=== PATIENT | female | born 1995 | race Caucasian/White ===

== ENCOUNTER 2016-10-31 10:01 | Inpatient (IN) | payer MEDICAID ==
[~2016-10-31] VITALS: Ht 160 cm; Wt 83.2 kg
[2016-10-31] VITALS (13 sets, daily range): BP systolic 130–159; BP diastolic 83–107; Ht 160 cm; Wt 83.2 kg
--- NOTE | ~2016-10-31 | CN ---
PATIENT NAME:MIKE GURROLA MEDICAL RECORD: [id number] : 95 LOCATION:[id number] ADMIT DATE: 10/31/16 ACCOUNT: [id number] CONSULTING PHYSICIAN: ENOC HARO MD REFERRING PHYSICIAN: KYLER MCCRARY MD DATE OF CONSULTATION: 10/31/2016 CONSULT REQUESTING PHYSICIAN: Kyler Mccrary M.D. REASON FOR CONSULTATION: ICU management, DIC, status post . HISTORY OF PRESENT ILLNESS: Ms. Gurrola is a 20-year-old female who was brought into the ER by EMS. She was found in a pool of blood at home. The patient was evaluated by Dr. Mccrary. The baby was in distress and the patient was taken to the OR for emergent . The patient has a blood loss, nearly 1000 mL during the surgery. She was transfused with 2 units of blood, but the patient's fibrinogen dropped to 179 and her platelet dropped to 140 with a normal INR. REVIEW OF SYSTEMS: Mainly in the history of present illness. PAST MEDICAL HISTORY: She has a history of depression and anxiety. Otherwise, no significant past medical history. PAST SURGICAL HISTORY: None. ALLERGIES: SHE IS ALLERGIC TO SULFA. PRESENT MEDICATIONS: [employer] was reviewed. PERSONAL AND SOCIAL HISTORY: The patient is a nonsmoker and nondrinker. FAMILY HISTORY: Significant for cardiovascular disease. PHYSICAL EXAMINATION: GENERAL: Now, the patient is lying comfortably. She is not in acute distress. VITAL SIGNS: The blood pressure is 159/102, pulse is 89, respirations 20, temperature 98.1, and SPO2 is 97% on room air. HEENT: Conjunctivae pink, sclerae nonicteric. NECK: Supple, no JVD. CHEST: The chest excursion is minimal on both. No wheeze, no rales. HEART: Rate and rhythm regular, normal sound, no murmur. ABDOMEN: Soft. No hepatosplenomegaly. She has absent bowel sounds. RECTAL: Deferred. EXTREMITIES: No cyanosis, no clubbing, no pedal edema. CENTRAL NERVOUS SYSTEM: The patient is awake and alert. There are no obvious cranial nerve abnormalities. LABORATORY DATA: CBC: The WBC is 18.2, hemoglobin is 10.1, hematocrit is 30.9, and the platelet count is 127. The fibrinogen level was 179. IMPRESSION: 1. Possible disseminated intravascular coagulation. 2. Preeclampsia. 3. Hypertension secondary to preeclampsia. CONSULT REPORT [id number] MIKE GURROLA 4. Anemia secondary to acute blood loss. 5. Placental abruption. 6. Hypoalbuminemia. RECOMMENDATION: 1. IV fibrinogen. Dr. Urrutia is consulted. We will replace blood platelets as required. 2. IV magnesium. 3. Blood pressure control. 4. Follow up labs and chest radiograph. Discussed with Dr. Urrutia. Discussed with Dr. Mccrary. Dr. Mccrary, once again, thanks for involving me in the care of Ms. Gurrola. TRANSINT:[id number] Voice Confirmation ID: [id number] DOCUMENT ID: [id number] ENOC HARO MD CC: KYLER MCCRARY MD and JON URRUTIA MD [id number] DICTATION DATE: 10/31/16 1528 LOCAL COMPANY FLATBED TRUCK DRIVER: 10/31/16 1805 ADM IN [place] [id number] [place] [address]
[~2016-10-31 10:01] MED LIST: HYDROCODON-ACE1 EAC7 PO; IBUPROFEN600 MG PO; PRENATAL COMPLE1 TAB PO
[2016-10-31 11:03] LABS: FIBRINOGEN 179 mg/dL (239-481); PROTIME 14.1 SECONDS (11.6-15.0)
[2016-10-31 11:04] LABS: APTT 27.3 SECONDS (22.8-39.4)
--- NOTE | 2016-10-31 11:22 | NUR ---
XRAY CLEAR PER SIMIN IN XRAY.
[2016-10-31 11:27] LABS: D-DIMER-QUANTITATIVE > 20.00 ug/mLFEU (0.20-0.54)
[2016-10-31 11:39] LABS: HEMATOCRIT 35.1 % (36.0-48.0); HEMOGLOBIN 11.3 g/dL (12-16); MCH 27.1 pg (26.0-34.0); MCHC 32.2 g/dL (31.0-37.0); MCV 84.2 fL (80.0-100.0); PLATELET COUNT 140 10x3/uL (130-400); RBC 4.17 10x6/uL (4.00-5.40); WBC 22.5 10x3/uL (4.8-10.8)
[2016-10-31 12:05] LABS: EOSINOPHILS 1 % (0-7); LYMPHOCYTES 13 % (15-50); NEUTROPHILS 85 % (40-80)
--- NOTE | 2016-10-31 12:05 | NUR ---
CALLED TO ROOM FOR STAT C SECTION. UPON ENTERING ROOM ADJUNCT PSYCHOLOGY PROFESSOR AT HEAD OF BED PROVIDING O2 TO PT. FELTON WALTON RN IN ROOM WITH SD NOTED LAYING ON LEFT SIDE. FELTON WALTON INSERTED AGUILAR CATHETER. DR STEVENS PRESENT AND PREPPED PT ABDOMEN. HAYES ROBLEDO INTUBATED PT AND C SECTION STARTED PROMPTLY. DEWEY BENITEZ RN PRESENT FROM NURSERY. NO TIME FOR INITIAL COUNT OF SPONGES AND INSTRUMENTS. AGREED FOR POST OP XRAY. UNABLE TO OBTAIN CORD BLOOD. DR STEVENS AWARE.
[2016-10-31 12:06] LABS: PLATELET ESTIMATE NORMAL
[2016-10-31 12:09] LABS: UDS - AMPHET NEGATIVE QUAL (NEGATIVE); UDS - BARB NEGATIVE QUAL (NEGATIVE); UDS - BENZO POSITIVE QUAL (NEGATIVE); UDS - COCAINE NEGATIVE QUAL (NEGATIVE); UDS - METH NEGATIVE QUAL (NEGATIVE); UDS - OPIATE NEGATIVE QUAL (NEGATIVE); UDS - PCP NEGATIVE QUAL (NEGATIVE); UDS - THC POSITIVE QUAL (NEGATIVE)
[2016-10-31 12:09] LABS: ALBUMIN 1.7 g/dL (3.4-5.0); ALKALINE PHOSPHATASE 100 U/L (46-116); ALT (SGPT) 10 U/L (10-68); BILIRUBIN - TOTAL 0.23 mg/dL (0.2-1.3); CALC OSMOLALITY 272 mosm/kg (275-300); CALCIUM 7.3 mg/dL (8.5-10.1); CARBON DIOXIDE 21.3 mmol/L (21.0-32.0); CHLORIDE - SERUM 106 mmol/L (98-107); CREATININE - SERUM 0.7 mg/dL (0.6-1.3); GLUCOSE 88 mg/dL (74-106); POTASSIUM - SERUM 4.4 mmol/L (3.5-5.1); PROTEIN - SERUM 5.1 g/dL (6.4-8.2); SODIUM 138 mmol/L (136-145); UREA NITROGEN 8 mg/dL (7-18); eGFR NON AFRICAN AMERICAN > 90 mL/min (90-120)
--- NOTE | 2016-10-31 13:20 | NUR ---
THIS RN TO ROOM PER REQUEST OF PSYCHIATRIC NURSING AIDE TO PERFORM FUNDAL ASSESSMENT. PT AAOx3, TALKING WITH THIS RN. FUNDUS FIRM, SLIGHTLY DEVIATED TO RIGHT, U/2. SCANT RUBRA LOCHIA NOTED TO PERIPAD THAT WAS RECENTLY CHANGED BY PSYCHIATRIC NURSING AIDE. NO CLOTS EXPELLED WITH MASSAGE. REPORT GIVEN TO PSYCHIATRIC NURSING AIDE ON FUNDAL ASSESSMENT.
--- NOTE | 2016-10-31 13:30 | NUR ---
L&D NURSE AT BEDSIDE ASSESSING FUNDAS.
--- NOTE | 2016-10-31 13:30 | NUR ---
REC'D CARE OF PT. A&O X3.
--- NOTE | 2016-10-31 13:35 | NUR ---
MOM AND DAD ALLOWED BACK TO CHECK ON HER.
--- NOTE | 2016-10-31 13:56 | NUR ---
L&D NURSE AT BEDSIDE ASSESSING FUNDAS.
--- NOTE | 2016-10-31 13:59 | NUR ---
L&D NURSE CHANGED PAD UNDER PT. BLEEDING BASELINE ESTABLISHED.
--- NOTE | 2016-10-31 14:00 | NUR ---
TO ROOM TO ASSESS FUNDUS/LOCHIA. ABODMEN PALPATES SOFT, WITH FUNUS FIRM, U/2, SCANT MARY LOCHIA NOTED, NO CLOTS EXPRESSED. LARGE WHITE BANDAGE NOTED TO INCISION, C/D/I. KIEL CHUX CHANGED, AND PERIPADS X 2 PLACED. WARM BLANKETS PLACED BACK ON PT. PT'S FAMILY AT BEDSIDE. PT ASKING ABOUT PAIN MEDICATION, INFORMED ALICIA CROFT OF PT'S REQUEST.
--- NOTE | 2016-10-31 14:10 | NUR ---
THIRD UNIT FFP COMPLETED.
--- NOTE | 2016-10-31 14:12 | NUR ---
DR. RODNEY NIELSON FOR PAIN CONTROL.
[2016-10-31 14:17] LABS: UDS - AMPHET NEGATIVE QUAL (NEGATIVE); UDS - BARB NEGATIVE QUAL (NEGATIVE); UDS - BENZO NEGATIVE QUAL (NEGATIVE); UDS - COCAINE NEGATIVE QUAL (NEGATIVE); UDS - METH NEGATIVE QUAL (NEGATIVE); UDS - OPIATE NEGATIVE QUAL (NEGATIVE); UDS - PCP NEGATIVE QUAL (NEGATIVE); UDS - THC POSITIVE QUAL (NEGATIVE)
--- NOTE | 2016-10-31 14:35 | NUR ---
TO PT'S ROOM FOR FUNDAL CHECK, SMALL RUBRA LOCHIA NOTED, FUNDUS FIRM, U/2, SMALL TO MODERATE RUBRA LOCHIA NOTED WITH FUNDAL CHECK. DR. STEVENS IN ROOM, SPEAKING WITH PT. NOTES LOCHIA AT THIS TIME.
[2016-10-31 14:38] LABS: BASOPHILS 0.1 % (0-2); EOSINOPHILS 0.1 % (0-7); HEMATOCRIT 29.4 % (36.0-48.0); HEMOGLOBIN 9.8 g/dL (12-16); IMMATURE GRANULOCYTES 0.5 % (0-5); LYMPHOCYTES 6.8 % (15-50); MCH 27.4 pg (26.0-34.0); MCHC 33.3 g/dL (31.0-37.0); MEAN PLATELET VOLUME 10.3 fL (7.4-10.4); MONOCYTES 6.5 % (2-11); PLATELET COUNT 125 10x3/uL (130-400); RBC 3.58 10x6/uL (4.00-5.40); RDW 16.6 % (11.5-14.5)
[2016-10-31 14:40] LABS: MCV 82.1 fL (80.0-100.0); WBC 15.9 10x3/uL (4.8-10.8)
--- NOTE | 2016-10-31 14:45 | NUR ---
DR. STEVENS AT BEDSIDE UPDATING PT.
[2016-10-31 15:09] LABS: HEMATOCRIT 30.9 % (36.0-48.0); HEMOGLOBIN 10.1 g/dL (12-16); MCHC 32.7 g/dL (31.0-37.0); MCV 82.6 fL (80.0-100.0); MEAN PLATELET VOLUME 9.8 fL (7.4-10.4); RBC 3.74 10x6/uL (4.00-5.40); RDW 16.5 % (11.5-14.5); WBC 18.2 10x3/uL (4.8-10.8)
[2016-10-31 15:15] LABS: APTT 26.5 SECONDS (22.8-39.4); INR 1.12 (0.85-1.17); PROTIME 14.3 SECONDS (11.6-15.0)
--- NOTE | 2016-10-31 15:23 | NUR ---
TALKED WITH DR. STEVENS About giving ZOFRAN WITH THE OXYTOCIN AND SHE SAID TO GIVE IT.
--- NOTE | 2016-10-31 15:36 | NUR ---
PITOCIN DRIP CHANGED FROM 20 UNITS/1000NS AT 125 TO 40 UNITS/1000 AT 25 CC PER HOUR.
[2016-10-31 15:37] LABS: CALC OSMOLALITY 274 mosm/kg (275-300); CALCIUM 7.8 mg/dL (8.5-10.1); CARBON DIOXIDE 24.9 mmol/L (21.0-32.0); CHLORIDE - SERUM 104 mmol/L (98-107); CREATININE - SERUM 0.5 mg/dL (0.6-1.3); GLUCOSE 85 mg/dL (74-106); SODIUM 139 mmol/L (136-145); UREA NITROGEN 7 mg/dL (7-18); eGFR NON AFRICAN AMERICAN > 90 mL/min (90-120)
--- NOTE | 2016-10-31 15:45 | NUR ---
TO ROOM TO ASSESS FUNDUS. FUNDUS FIRM, U/2, SMALL RUBRA LOCHIA NOTED, NO CLOTS NOTED. ABDOMEN CONTINUES TO PALPATE SOFT, BANDAGE OVER INCISION C/D/I. PERICARE DONE WITH WARM WET WASHCLOTHS, PERIPADS PLACED X 2, AND CHUX CHANGED. SR UP X2, FAMILY REMAINS AT BEDSIDE.
--- NOTE | 2016-10-31 15:49 | NUR ---
L&D NURSE AT BEDSIDE. ASSESSING FUNDUS.
--- NOTE | 2016-10-31 16:00 | NUR ---
INCENTIVE SPIROMETER GIVEN TO AND EXPLAINED TO PT WITH DEMONSTRATION BY PT DONE.
--- NOTE | 2016-10-31 16:24 | NUR ---
MOM AT BEDSIDE. COMFORTING HER.
--- NOTE | 2016-10-31 17:01 | NUR ---
NO S/S OF INFILTRTION AT PIV X2 SITES.
--- NOTE | 2016-10-31 17:45 | NUR ---
TO ROOM FOR FUNDAL CHECK, FUNDUS FIRM, U/2, SMALL RUBRA LOCHIA, NO CLOTS. PERIPADS CHANGED. PT STATES "IT DOESN'T FEEL LIKE IT IS MUCH BLEEDING NOW". PT TALKING ABOUT BABY GIRL'S PROGRESS REPORT FROM [facility]. DENIES OTHER NEEDS AT THIS TIME.
[2016-10-31 18:31] LABS: BASOPHILS 0.1 % (0-2); EOSINOPHILS 0.1 % (0-7); HEMATOCRIT 30.6 % (36.0-48.0); IMMATURE GRANULOCYTES 0.3 % (0-5); LYMPHOCYTES 13.3 % (15-50); MCH 27.4 pg (26.0-34.0); MCHC 32.7 g/dL (31.0-37.0); MCV 83.8 fL (80.0-100.0); MEAN PLATELET VOLUME 10.2 fL (7.4-10.4); MONOCYTES 4.6 % (2-11); NEUTROPHILS 81.6 % (40-80); PLATELET COUNT 133 10x3/uL (130-400); RBC 3.65 10x6/uL (4.00-5.40); RDW 16.4 % (11.5-14.5); WBC 15.1 10x3/uL (4.8-10.8)
--- NOTE | 2016-10-31 18:41 | NUR ---
JOHANNY 1900 ON IS
[2016-10-31 18:54] LABS: INR 1.01 (0.85-1.17); PROTIME 13.1 SECONDS (11.6-15.0)
[2016-10-31 18:55] LABS: APTT 26.4 SECONDS (22.8-39.4)
--- NOTE | 2016-10-31 19:00 | NUR ---
REPORT RECIEVED, INITIAL ASSESSMENT COMPLETE, PLEASE SEE FLOW SHEETS FOR DETAILS. VSS, BED LOW AND LOCKED, CALL LIGHT IN REACH. AGUILAR IN PLACE WITH YELLOW URINE NOTED. DRESSING IN PLACE FROM CESARIAN SECTION THIS AM. PIV IN RIGHT HAND WITH DEMEROL CERTIFIED ADAPTED PHYSICAL EDUCATOR INFUSING AND 0.45%NS @ 25. LEFT AC PIV WITH OCITOCIN INFUSING AT 25, AND MAG SULFATE @ 50--PLEASE SEE ORDERS FOR DOSING. MOTHER AT BED SIDE, L&D NURSE AT BED SIDE TALKING WITH PATIENT AND FAMILY ABOUT SITUATION WITH PT BABY AND HER SITUATION WELL. SCD'S ON AND RUNNING, DENIES PAIN/NEEDS ATT, WILL CONTINUE POC.
--- NOTE | 2016-10-31 19:20 | NUR ---
RN TO PT BS. FUNDUS FIRM AND ML @ U/-2. KAREY BAXTER. DISCUSSED AT LENGTH WITH PT POSSIBLE INFANT OUTCOMES. MULTIPLE QUESTIONS ANSWERED. 3+ DTR'S IN LOWER EXTREMITIES BILATERALLY. NO CLONUS NOTED. PT REQUESTS FUNUS CHECKS BE CHANGED, NOT TO BE DONE Q1H. WILL DISCUSS WITH DR. STEVENS. DISCUSSED POC WITH CUSTOMER CONTACT SPECIALIST HORSE RIDER. MULTIPLE QUESTIONS ANSWERED. WILL CONT TO MONITOR PT STATUS THROUGH THE NIGHT.
--- NOTE | 2016-10-31 19:45 | NUR ---
CRYO HUNG AND INFUSING.
[2016-10-31 19:54] LABS: HEMATOCRIT 30.4 % (36.0-48.0); HEMOGLOBIN 9.9 g/dL (12-16); MCH 27.4 pg (26.0-34.0); MCHC 32.6 g/dL (31.0-37.0); MCV 84.2 fL (80.0-100.0); MEAN PLATELET VOLUME 9.9 fL (7.4-10.4); RBC 3.61 10x6/uL (4.00-5.40); RDW 16.6 % (11.5-14.5); WBC 14.2 10x3/uL (4.8-10.8)
--- NOTE | 2016-10-31 20:10 | NUR ---
DISCUSSED POC WITH DR. STEVENS, MAY CHANGE FUNDUS CHECKS TO Q2H. WILL PLACE NEW ORDER.
--- NOTE | 2016-10-31 20:30 | NUR ---
DR URRUTIA CALLED AND ASKED FOR UPDATE ON PT, THIS WAS GIVEN, HE SAID HW WANTED TO BE CALLED FOR ANY SIGNIFICANT CHANGE IN FIBRINOGEN LEVELS OR PT, PTT LEVELS ON NEXT LAB, ALSO OF ANY OTHER LABS ARE CHANGED SIGNIFICANTLY. ALSO SAID IF NEXT LAB OS OKAY, CAN CHANGE TO Q8HR LABS INSTEAD OF Q4HR LABS, SAID TO CALL TO CONFIRM THIS IF NEEDED.
[2016-10-31 20:49] LABS: UDS - AMPHET NEGATIVE QUAL (NEGATIVE); UDS - BARB NEGATIVE QUAL (NEGATIVE); UDS - BENZO POSITIVE QUAL (NEGATIVE); UDS - COCAINE NEGATIVE QUAL (NEGATIVE); UDS - METH NEGATIVE QUAL (NEGATIVE); UDS - OPIATE POSITIVE QUAL (NEGATIVE); UDS - PCP NEGATIVE QUAL (NEGATIVE); UDS - THC NEGATIVE QUAL (NEGATIVE)
--- NOTE | 2016-10-31 21:00 | NUR ---
COMPLAINS OF PAIN 6/10, SAID SHE JUST PUSHED HER SACK CLEANING HAND BUTTON. UNSTRUCTED THAT IT WOULD TAKE A FEW MOMENTS FOR EFFECT. NO OTHER NEEDS ATT, VSS, BED LOW AND LOCKED, CALL LIGHT IN REACH. WILL CONTINUE TO MONITOR.
--- NOTE | 2016-10-31 21:32 | NUR ---
RN TO PT BS. FUNDUS FIRM AND ML @ U/-2. LOCHIA RUBRA SMALL. URINE OUTPUT GREATER THAN 30CC/HR. VS WNL. DTR'S 2+ IN LOWER EXTREMITIES BILATERALLY WITH NO CLONUS NOTED. POC DISCUSSED WITH PT AND MOTHER AT BS. QUESTIONS ANSWERED. WILL CONT TO MONITOR PT STATUS.
[2016-10-31 22:17] LABS: BASOPHILS 0.1 % (0-2); EOSINOPHILS 0.1 % (0-7); HEMATOCRIT 30.4 % (36.0-48.0); HEMOGLOBIN 9.9 g/dL (12-16); IMMATURE GRANULOCYTES 0.3 % (0-5); LYMPHOCYTES 12.8 % (15-50); MCH 27.2 pg (26.0-34.0); MCHC 32.6 g/dL (31.0-37.0); MCV 83.5 fL (80.0-100.0); MEAN PLATELET VOLUME 9.6 fL (7.4-10.4); MONOCYTES 4.7 % (2-11); PLATELET COUNT 126 10x3/uL (130-400); RBC 3.64 10x6/uL (4.00-5.40); RDW 16.4 % (11.5-14.5); WBC 13.9 10x3/uL (4.8-10.8)
--- NOTE | 2016-10-31 22:25 | NUR ---
CALLED REPORT TO CHEYANNE VARGAS IN CVICU. WILL TRANSFER PT TO NEW UNIT.
[2016-10-31 22:34] LABS: APTT 26.2 SECONDS (22.8-39.4); INR 1.01 (0.85-1.17); PROTIME 13.2 SECONDS (11.6-15.0)
--- NOTE | 2016-10-31 22:41 | NUR ---
PT TRANSPORTED TO CVICU BY ICU STAFF AND PC MAINTENANCE TECHNICIAN.
--- NOTE | 2016-10-31 23:30 | NUR ---
Pt received and assessment completed. Pt alert, oriented x4 and following all commands and conversation with no neuro deficits noted. O2 RA. Respirations even and unlabored. Lung sounds CTA> HR SR with S1S2 auscultated. All peripheral pulses +2 with capillary refill <3 seconds. Right hand PIV site CDI no s/s infection or infiltration with 1/2NS @ 25cc/hr with Demerol INTERNATIONAL PROJECT ENGINEER setup 10mg q10min. Left A/C PIV site CDI; no s/s infection or infiltration with Pitocin @ 25cc/hr with Magnesium 40gm in 1000cc sterile water infusing @ 50cc/hr for 2gm Mg2+/hr infusion. Abdomen soft and distended. BS present to all quadrants. Massey catheter secure retrieving clear/yellow urine. Q1hr urine output monitoring in progress. SCDs secure bilaterally. Fundal checks per L&D nurse q2hr. DTRs currently 2+ patellar. Pt denies pain. Sips of ice water provided. Labs called to . Seamus for coags changed to AM. Will check next lab set @ 2am w/Mg2+ level. Mother at pt bedside. CPOC.
--- NOTE | 2016-10-31 23:37 | NUR ---
RN TO PT BS. FUNDUS FIRM AND ML @ U/-2. KAREY BAXTER. KIEL CARE PERFORMED. KIEL PADS CHANGED. POC REVIEWED WITH RECEIVING RN AND PT. QUESTIONS ANSWERED. WILL CONT TO MONITOR PT STATUS.
[2016-11-01] VITALS (18 sets, daily range): BP systolic 111–150; BP diastolic 61–100
--- NOTE | 2016-11-01 00:30 | NUR ---
Pt awakens to verbal stimulation. No changes to note. IVF infusing to PIV sites CDI; no s/s infection or infiltration. O2 RA. Respirations unlabored. Lung sounds CTA. HR SR. BS +. Massey remains secure retrieving clear/yellow urine. Pt denies current pain. Demerol GENERAL FOUNDRY WORKER button within pt reach. DTR 2+ patellar.
--- NOTE | 2016-11-01 01:30 | NUR ---
Pt self-positioned to left side and resting with VSS. NO s/s pain or distress.
--- NOTE | 2016-11-01 01:36 | NUR ---
RN TO PT BS. FUNDUS FIRM AND ML @ U/-2. LOCHIA RUBRA SMALL. KIEL CARE PERFORMED. KIEL PADS CHANGED. PT REPOSITIONED IN BED FOR COMFORT. VS STABLE. URINE OUTPUT WNL. LABS REMAIN STABLE. WILL CONT TO MONITOR PT STATUS.
[2016-11-01 02:38] LABS: BASOPHILS 0.1 % (0-2); EOSINOPHILS 0.1 % (0-7); HEMATOCRIT 30.2 % (36.0-48.0); HEMOGLOBIN 9.8 g/dL (12-16); IMMATURE GRANULOCYTES 0.3 % (0-5); LYMPHOCYTES 10.4 % (15-50); MCHC 32.5 g/dL (31.0-37.0); MCV 83.2 fL (80.0-100.0); MEAN PLATELET VOLUME 9.9 fL (7.4-10.4); MONOCYTES 4.1 % (2-11); PLATELET COUNT 121 10x3/uL (130-400); RBC 3.63 10x6/uL (4.00-5.40); RDW 16.8 % (11.5-14.5); WBC 13.2 10x3/uL (4.8-10.8)
[2016-11-01 02:53] LABS: APTT 27.4 SECONDS (22.8-39.4); INR 1.04 (0.85-1.17); PROTIME 13.4 SECONDS (11.6-15.0)
[2016-11-01 02:54] LABS: ALBUMIN 1.9 g/dL (3.4-5.0); ALKALINE PHOSPHATASE 102 U/L (46-116); CARBON DIOXIDE 24.1 mmol/L (21.0-32.0); CHLORIDE - SERUM 102 mmol/L (98-107); CREATININE - SERUM 0.5 mg/dL (0.6-1.3); GLUCOSE 95 mg/dL (74-106); PROTEIN - SERUM 5.6 g/dL (6.4-8.2); SODIUM 134 mmol/L (136-145); eGFR NON AFRICAN AMERICAN > 90 mL/min (90-120)
[2016-11-01 03:00] LABS: ALT (SGPT) 20 U/L (10-68); CALC OSMOLALITY 264 mosm/kg (275-300); CALCIUM 6.9 mg/dL (8.5-10.1); MAGNESIUM - SERUM 5.4 mg/dL (1.8-2.4); UREA NITROGEN 3 mg/dL (7-18)
--- NOTE | 2016-11-01 03:08 | NUR ---
SPOKE WITH DR. STEVENS REGARDING MAGNESIUM LEVEL OF 5.4, PT WITH GOOD URINE OUTPUT AND STABLE CREATININE, PER MD WILL CONT MAGNESIUM SULFATE INFUSION AT 2GM/HR AND CONT TO MONITOR PT STATUS.
--- NOTE | 2016-11-01 03:30 | NUR ---
Reassessment complete. See flowsheet. No neuro changes to note. O2 RA. Respirations even and unlabored. Lung sounds CTA. HR ST 102BPM with S1S2 auscultated. All peripheral pulses +2 with capillary refill <3 seconds. PIV sites remain CDI; no s/s infection or infiltration with NO IVF changes to note from previous assessment. BS +. Massey remains secure retrieving clear/yellow urine. L&D nurse here for fundal check and massage. Pericare completed per L&D RN. Pt positioned for comfort. Ice water provided per pt request. No other changes to note. Call light and bedside table with PEDIATRIC NEPHROLOGIST button remain within pt reach. CPOC.
--- NOTE | 2016-11-01 03:43 | NUR ---
RN TO PT BS. PT RESTING IN BED IN SEMI-FOWLERS POSITION TEXTING ON PHONE. FUNDUS FIRM AND ML @ U/-2. LOCHIA RUBRA SMALL. KIEL CARE PERFORMED, CHUX AND KIEL PADS CHANGED. 350ML CLEAR YELLOW URINE EMPTIED FROM UROMETER. DECORATOR CONSULTANT NOTIFIED TO ADD TO TOTAL OUTPUT. PT ENCOURAGED TO MOVE IN BED TO ALLEVIATE STIFFNESS. VS STABLE. 0215 LAB WORK WNL FOR PATIENT. WILL CONT TO MONITOR PT STATUS.
--- NOTE | 2016-11-01 05:30 | NUR ---
Pt awake on phone. VSS. Demerol ELASTIC ASSEMBLER syringe change completed. Pain denied. L&D nurse here for fundal check and pad change.
--- NOTE | 2016-11-01 05:41 | NUR ---
RN TO PT BS. PT RESTING IN BED IN SEMI-FOWLERS POSITION IN NO ACUTE DISTRESS. FUNDUS FIRM AND ML @ U/-2, LOCHIA SEROSA SCANT. KIEL CARE PERFORMED, KIEL PADS CHANGED. URINE OUTPUT GOOD. 1+ KIEL ORBITAL EDEMA NOTED. LABS STABLE FOR PT CONDITION. PT DENIES ANY NEEDS. WILL CONT TO MONITOR PT STATUS.
--- NOTE | 2016-11-01 07:30 | NUR ---
ASSESSMENT COMPLETE. SEE FLOWSHEET FOR DETAILS. L&D NURSE COMING AND DOING DTR'S AND FUNDUS ASSESSMENTS.
--- NOTE | 2016-11-01 07:35 | NUR ---
REQUESTED TO CONDUCT FUNDAL CHECK AND REFLEX CHECKS ON THIS POST OP C/S PATIENT IN CVICU. ALERT AND ORIENTED AT THIS TIME. U/2 FIRM, RUBRA SCANT ON PAD. CLEAN PERIPADS ON X 2. 1+ PATELLAR DTRS, NEG CLONUS. REQUESTED POSITION CHANGE. ASSISTED TO TURN TO LEFT SIDE. PILLOWS POSITIONED FOR COMFORT. SCD'S IN PLACE AND ON PUMP. INSTRUCTED ON USE OF PILLOW ON ABDOMEN FOR COUGHING AND POSITION CHANGES. SIDE RAILS UP X 2, OPERATING MANAGER CONTROL AND CALL BUTTON HANDED TO PATIENT. VISITOR SLEEPING ON COUCH. REPORT OF REFLEXES AND FUNDAL CHECK/LOCHIA GIVEN TO UNIT RN.
[2016-11-01 08:09] LABS: BASOPHILS 0.2 % (0-2); EOSINOPHILS 0.1 % (0-7); HEMATOCRIT 30.6 % (36.0-48.0); HEMOGLOBIN 9.9 g/dL (12-16); IMMATURE GRANULOCYTES 0.3 % (0-5); LYMPHOCYTES 12.3 % (15-50); MCH 27.3 pg (26.0-34.0); MCHC 32.4 g/dL (31.0-37.0); MCV 84.5 fL (80.0-100.0); MONOCYTES 4.8 % (2-11); NEUTROPHILS 82.3 % (40-80); PLATELET COUNT 131 10x3/uL (130-400); RBC 3.62 10x6/uL (4.00-5.40); RDW 17.2 % (11.5-14.5); WBC 11.3 10x3/uL (4.8-10.8)
[2016-11-01 08:20] LABS: APTT 27.4 SECONDS (22.8-39.4); INR 0.99 (0.85-1.17); PROTIME 12.9 SECONDS (11.6-15.0)
--- NOTE | 2016-11-01 08:40 | NUR ---
TALKED TO DR STEVENS ON PHONE REGARDING PT BLEEDING AND DTRS THIS MORNING. REVIEWED CBC, FIBRINOGEN, MAG RESULTS AND CURRENT VS WITH MD. NEW ORDERS RECEIVED. ANTICIPATE TRANSFER BACK TO L&D FOR CONTINUED POST OP C/S CARE. PT CVICU NURSE NOTIFIED OF NEW ORDERS.
--- NOTE | 2016-11-01 09:00 | NUR ---
FAMILY AT BEDSIDE. DENIES NEEDS AT THIS TIME.
--- NOTE | 2016-11-01 09:30 | NUR ---
TO CVICU TO DO FUNDAL CHECK AND DTR. SITTING UP IN BED EATING CLEAR LIQUID DIET. U/2 FIRM MIDLINE. LOCHIA SEROSA SMALL TO MOD ON PAD. CLEAN KIEL-PADS X 2 PLACED. DTR 1+. INFORMED PT OF PLAN PER MD TO DC IV FLUIDS AND AGUILAR AT 1000 AND TRANSFER TO L&D AFTER CONSULT MD APPROVES. PLAN DC DRESSING, SHOWER, AMBULATION TODAY. VERBALIZED UNDERSTANDING.
--- NOTE | 2016-11-01 10:51 | OP ---
PATIENT NAME: MIKE GURROLA MEDICAL RECORD: [id number] :95 LOCATION:[id number] ADMISSION DATE:10/31/16 SURGEON: KYLER MCCRARY MD DATE OF OPERATION: 10/31/2016 PREOPERATIVE DIAGNOSES: 1. Intrauterine at 36+ weeks per patient reported MEDINA. 2. Nonreassuring heart rate tracing. 3. Suspected placental abruption. POSTOPERATIVE DIAGNOSES: 1. Intrauterine at 36+ weeks per patient reported MEDINA. 2. Nonreassuring heart rate tracing. 3. Complete placental abruption. 4. Delivered. SURGEON: Kyler Mccrary MD ANESTHESIA: General endotracheal anesthesia with Chi Mathias CRNA. PROCEDURE: Emergent primary low-transverse . FINDINGS: Delivery of female from vertex presentation via emergent primary low-transverse under general endotracheal anesthesia at 10:16 a.m. with weight of 4 pounds 9 ounces and scores of 0, 0, 0, 2, 2 at one, 5, 10, 15, and 20 minutes. No nuchal cord. The cord was clamped and cut. The was immediately handed to waiting pediatric nurse. The was dusky in appearance with no discernible spontaneous movements, nor respiratory effort. The placenta then followed spontaneously with 100% abruption noted, at 10:16 a.m. Copious fresh and older appearing blood and clot noted behind placenta and an uterus. Twenty units of Pitocin in 1 liter of normal saline was begun IV. The fundus was noted to be firm. Otherwise, normal appearing uterus, ovaries and tubes bilaterally. The patient went to the recovery room in guarded condition, the to the NICU where the soil fertility specialist was awaiting the 's arrival. Please see H&P for preoperative details. DESCRIPTION OF PROCEDURE: After informed consent was given, the patient was taken to the operating room emergently in a knee-chest position as a stat was called. The OR team was notified as the patient was wheeled down the merino away. The patient was then rapidly transferred to the OR table, placed in a supine position with a leftward tilt. A Massey catheter was placed. The patient was prepped and draped and general endotracheal anesthesia was placed and found to be adequate. A Pfannenstiel skin incision was then made through the skin and carried down to the underlying layer of fascia. The fascia was incised in the midline and the fascial incision extended superiorly and bilaterally in a Abhijit-Enriquez like procedure. The rectus muscles were in the midline, the peritoneum identified and entered bluntly with a finger. This incision was extended superiorly and inferiorly with good visualization of the bladder. The hysterotomy was then created with the knife. This was extended bilaterally bluntly and the infant's head delivered atraumatically. Copious amounts of blood and clot were noted at the time of hysterotomy. The was then immediately handed to awaiting pediatric personnel as soon as the cord was clamped and cut. The infant was dusky in appearance with no discernible spontaneous movements or respiratory effort. The placenta then followed the spontaneously with 100% abruption noted. Copious fresh OPERATIVE REPORT [id number] FREDDIE GURROLAJosefina Mcclain and older appearing blood and clot was noted behind the placenta and in the uterus. The uterus was exteriorized and cleared of all clots and debris. The interior of the uterus was wiped with a moist lap sponge. The hysterotomy was then closed with #1 chromic in a running locked fashion. Excellent hemostasis was noted and the uterus was returned to the abdomen. The abdomen was irrigated profusely and noted to be hemostatic. The rectus muscles were reapproximated in the midline with 3 interrupted chromic sutures. The fascia was closed with 0 Vicryl in a running fashion, locking the first suture. The subcutaneous tissue was irrigated, any bleeders cauterized with the Bovie and when noted to be sufficiently dry, was closed with 3-0 Vicryl in 2 layers in a running fashion and the skin was closed with 3-0 Monocryl in a subcuticular fashion. Dermabond and pressure dressing were applied. The uterus was noted to be firm at completion of the procedure. Clear urine was noted in the Massey catheter. The patient tolerated the procedure well. Sponge, lap, needle, and instrument counts were reported correct times 1 due to the expedited nature of the procedure. Instruments, needle, and lap counts were not performed at the start of the procedure. Once the procedure was completed, an abdominal x-ray was performed, confirming that no sponge laps or needles had been left within the patient's abdomen and all were accounted for. The patient was then moved into the recovery room in guarded condition. The , of course, was in the nursery/NICU where the soil fertility specialist was awaiting her arrival. ESTIMATED BLOOD LOSS: 1500+ cc. URINE OUTPUT: 5 cc. SPECIMENS: Placenta. COMPLICATIONS: None. Of note, cord blood was unable to be obtained due to the lack of blood within the umbilical cord and placenta due to the abruption. TRANSINT:[id number] Voice Confirmation ID: [id number] DOCUMENT ID: [id number] KYLER MCCRARY MD at 1051 CC: [id number] DICTATION DATE: 10/31/16 1834 SALES HOST: 10/31/16 2200 ADM IN [facility] [address] [id number]
--- NOTE | 2016-11-01 11:15 | NUR ---
DC'D AGUILAR, STOPPED IV FLUIDS
--- NOTE | 2016-11-01 12:40 | NUR ---
PT RECEIVED TO ROOM 1278 VIA W/C. PT INSTRUCTED ON POSTURE AND BRACING INCISION SHE STANDS TO AMBULATE TO BED. PT FOLLOWS INSTRUCTIONS, STANDS WITHOUT ASSISTANCE AND AMBULATES APPROX 5 STEPS TO BED, SITS ON BEDSIDE. WITH INSTRUCTION, PT POSITIONS SELF TO SITTING UP IN BED, HOB 60 DEGREES, SUPPORTED WITH PILLOWS. PT RATES PAIN 5/10. VS OBTAINED AND NOTED TO BE STABLE, SEE FLOWSHEET FOR DOC. PT PROVIDED WITH SPRITE ON ICE REQUESTED. SRUx2, CL IN REACH, FAMILY AT BEDSIDE. ALICIA MCGUIRE OBTAINING ORDERED PAIN MEDICAITONS FOR PT.
--- NOTE | 2016-11-01 12:50 | NUR ---
U/2 FIRM, LOCHIA SEROSA SMALL, SALINE LOCK IN RIGHT WRIST PAINFUL TO PT AND WOULD NOT FLUSH, DC'D LOCK AT THIS TIME. SALINE LOCK IN LEFT ANTECUBITAL NON-TENDER, SALINE FLUSHED WITHOUT DIFF. NO ERRYTHEMA NOTED. ORIENTED TO ROOM AND BED. C/O 5/10 INCISIONAL PAIN. VISITORS IN [place] WAITING TO SEE PT. FRESH ICE WATER AND [place] DRINK AT BEDSIDE. SIDE RAILS UP X 2, CALL LIGHT IN REACH.
--- NOTE | 2016-11-01 13:05 | NUR ---
PERCOCET 10 MG GIVEN PO FOR RELIEF OF 5/10 INCISIONAL PAIN. PLANS TO TALK WITH VISITORS, TAKE A NAP AND THEN SHOWER AMBULATE LATER. HAD LUNCH PRIOR TO TRANSFER. SIDE RAILS UP X 2, CALL LIGHT IN REACH. SCD'S CONNECTED AND PUMPING BILATERALLY APPROPRIATELY. INSTRUCTED NOT TO GET OOB WITHOUT ASSISTANCE. VERBALIZED UNDERSTANDING.
--- NOTE | 2016-11-01 13:31 | NUR ---
DR STEVENS HERE. ASKED HER ABOUT CONTINUATION OF COAG PANELS. NEW ORDER RECEIVED.
--- NOTE | 2016-11-01 13:40 | NUR ---
VISITORS STILL IN ROOM. SAYS HER PAIN IS GETTING BETTER, NOW A 2/10. FEELING TIRED STATES "I DIDN'T SLEEP LAST NIGHT. I'D LIKE TO TAKE A NAP". INSTRUCTED WILL ASSIST IN MAKING HER COMFORTABLE TO SLEEP BUT TO WAIT JUST A LITTLE SINCE DR STEVENS IS ON L&D MAKING ROUNDS AND WILL BE IN TO SEE HER. ALSO INFORMED THAT MD WILL PROBABLY REMOVE ABDOMINAL DRESSING DURING VISIT.
--- NOTE | 2016-11-01 14:08 | NUR ---
DR STEVENS VISITING PATIENT.
[2016-11-01 14:28] LABS: APTT 27.8 SECONDS (22.8-39.4); INR 0.97 (0.85-1.17); PROTIME 12.7 SECONDS (11.6-15.0)
--- NOTE | 2016-11-01 14:40 | NUR ---
THIS RN TO ROOM FOR PT CHECK. PT SITTING UP IN BED, HOB 45 DEGREES. LIGHTS IN ROOM DIMMED, PT TEXTING ON PHONE.POC TO SHOWER AND AMBULATED, AND MONITOR BP'S WITH ACTIVITY PER DR STEVENS'S ORDERS DISCUSSED WITH PT. UNDERSTANDING VERBALIZED. PT ENCOURAGED TO REST AND PLAN TO SHOWER BETWEEN 1530 AND 1600. PT DENIES NEEDS. SRUx2, CL IN REACH.
--- NOTE | 2016-11-01 14:44 | NUR ---
LIGHTS ON LOW, VISITORS GONE. DENIES NEED TO VOID AND DOES NOT WANT TO GET UP TO SHOWER NOW. STATES "I REALLY NEED TO SLEEP. I WILL SHOWER AND WALK AFTERWARD". SIDE RAILS UP X 2, CALL LIGHT IN REACH. ABD DRESSING STILL INTACT, WILL REMOVE IN SHOWER. DR. STEVENS ON L&D AND NOTED COAG. LAB NOTIFIED OF NEED FOR CBC.
[2016-11-01 14:53] LABS: BASOPHILS 0 % (0-2); EOSINOPHILS 0.1 % (0-7); HEMATOCRIT 30.7 % (36.0-48.0); HEMOGLOBIN 9.8 g/dL (12-16); IMMATURE GRANULOCYTES 0.3 % (0-5); LYMPHOCYTES 10.8 % (15-50); MCH 27.3 pg (26.0-34.0); MCHC 31.9 g/dL (31.0-37.0); MCV 85.5 fL (80.0-100.0); MEAN PLATELET VOLUME 10.6 fL (7.4-10.4); MONOCYTES 6.5 % (2-11); NEUTROPHILS 82.3 % (40-80); PLATELET COUNT 140 10x3/uL (130-400); RBC 3.59 10x6/uL (4.00-5.40); RDW 17.5 % (11.5-14.5); WBC 10.8 10x3/uL (4.8-10.8)
--- NOTE | 2016-11-01 15:40 | NUR ---
EYES CLOSED, RESPIRATIONS EVEN. VISITOR ARRIVED AND INSTRUCTED THAT PATIENT IS CURRENTLY SLEEPING AND CAN THE RETURN AROUND 1700. SIDE RAILS UP X 2, CALL LIGHT IN REACH.
--- NOTE | 2016-11-01 16:20 | NUR ---
PT AWAKE, DR CAMPOVERDE VISITING. VISITORS IN ROOM. PLANS SHOWER AND AMBULATION AFTER VISITORS LEAVE.
--- NOTE | 2016-11-01 16:33 | NUR ---
PEDITRICIAN OUT OF ROOM. PT CURRENTLY TEARFUL, REQUESTS TIME WITH FAMILY AT THE MOMENT.
--- NOTE | 2016-11-01 17:07 | NUR ---
UP TO BATHROOM TO VOID. VOIDED 200 CC URINE. ASSISTED TO SHOWER. KAREY BAXTER ON PERIPAD PRIOR TO VOIDING. STATES "I FEEL BETTER WHEN I AM UP".
--- NOTE | 2016-11-01 17:40 | NUR ---
COMPLETED SHOWER. AMBULATED IN [place] WITHOUT DIFFICULTY. RETURNED TO BED STATES "I'M STARTING TO HURT". DESIRES TO SIT ON EDGE OF BED. BP CHECKED. NOTED ELEVATED PULSE. WILL GIVE PAIN MED AND MONITOR PULSE WITH PULSE OX. PT MOTHER IN ROOM. REGULAR DIET SERVED.
--- NOTE | 2016-11-01 17:46 | NUR ---
PERCOCET 10 MG GIVEN PO FOR RELIEF OF PAIN. SITTING ON EDGE OF BED EATING DINNER. VISITORS IN ROOM.
--- NOTE | 2016-11-01 18:25 | NUR ---
PULSE TRACING ON MHR 120'S. DENIES FEELING ANY PAIN AT THIS TIME. SAYS SHE DOES NOT HAVE MUCH OF AN APPETITE. INFORMED HER THAT THIS IS NOT UNCOMMON AND THAT SMALL FREQUENT MEALS MAY BE BEST AND LET HER KNOW OF AVAILABLE FOODS THAT SHE CAN ASK FOR IF SHE FEELS HUNGRY. STATES "I JUST FEEL THIRSTY". FRESH ICE WATER GIVEN. PLANS TO GET IN BED TO REST. NOTIFIED DR STEVENS OF BP AND PULSE PRIOR TO SHOWER AND AMBULATION. WITH ELEVATED PULSE RATE AT 130-140'S AFTER WALKING. NOTIFIED THAT PT WAS GIVEN PAIN MEDICATION AND PULSE OX ON TO MONITOR HR. CURRENT HEART RATE IN 120'S. T.O TO WATCH HR FOR TRENDING UP OR DOWN.
--- NOTE | 2016-11-01 19:22 | NUR ---
PT RECEIVED TO MY CARE IN LDR 1278. PT RESTING IN BED IN SEMI-FOWLERS POSITION, IN NO ACUTE DISTRESS, VISITING WITH MULTIPLE FAMILY MEMBERS AT BS. PT IS A 20YO G2 NOW P2 WITH PRIMARY STAT C/S YESTERDAY @ 1016 OF VIABLE FEMALE @ 36.5 WKS GESTATION. PT PRESENTED WITH SEVERE PRE-ECLAMPSIA WITH ACTIVE PLACENTAL ABRUPTION, WITH FULL CODE AND TRANSFERED TO [facility] FOR TERTIARY CARE AND HEAD COOLING. PT WITH SUSPECTED DIC AND OVERNIGHT OBSERVATION IN ICU. AAOX3. HR REGULAR WITH OCCASIONAL TACHYCARDIA. LUNGS CTAB. ABDOMEN SOFT AND NON TENDER. BS HYPOACTIVE TIMES 4. LOWER ABDOMINAL TRANSVERSE INCISION NOTED. WELL PROXIMATED, NO ROMAINE OR STERI-STRIPS NOTED TO SITE. NO REDNESS, EDEMA, OR DRAINAGE NOTED. PT STATES SHE IS PASSING GAS BUT HAS NOT HAD A BM. PT HAS VOIDED ONCE SINCE AGUILAR HAS BEEN D/C'D. PT S/P MAGNESIUM SULFATE THERAPY FOR 24 HOURS. 1+ GENERALIZED EDMEA NOTED. SCD'S IN PLACE TO LOWER EXTREMITIES BILATERALLY. 18G SL IN PLACE TO LEFT AC. FLUSHED WITH 5CC NS WITHOUT DIFFICULTY. NO REDNESS, EDEMA, OR DRAINAGE NOTED AT SITE. FUNDUS NOT PALPATED. KIEL PAD AND PANTIES IN PLACE. LOCHIA SEROSA SCANT. PT DENIES GOMEZ, RUQ PAIN, OR VISION CHANGES AT THIS TIME. LAB WORK DRAWN @ 1400. H&H 9.8 & 30.7, PLATELETS 140, COAGS WNL, FIBRINOGEN 472. POC DISCUSSED WITH PT AND QUESTIONS ANSWERED. PT TOLERATING REGULAR DIET WITHOUT DIFFICULTY. PT DENIES ANY NEEDS AT THIS TIME. BED IN LOW POSITION, SIDE RAILS UP TIMES 2, CALL LIGHT AND PHONE IN REACH. WILL CONT TO MONITOR PT STATUS.
--- NOTE | 2016-11-01 21:00 | NUR ---
RN TO PT BS. PT ASSISTED TO BR, PT AMBULATED WITH MINIMAL ASSISTANCE. PT VOIDED 400ML CONCENTRATED PERLA URINE. PT CLEANED SELF AND CHANGED KIEL PAD. PT RETURNED AMBULATION TO BED. SCD'S REPLACED. PT QUESTIONS ABOUT PAIN MEDICATION. PAIN MEDICATION SCHEDULE DISCUSSED WITH PT, QUESTIONS ANSWERED ABOUT POSSIBLE DISCHARGE FOR TOMORROW. WILL PROVIDE PT WITH PAIN MEDICATION WHEN IT IS DUE. PT DENIES ANY FURTHER NEEDS. BED IN LOW POSITION, SIDE RAILS UP TIMES 2, CALL LIGHT AND PHONE IN REACH. FAMILY TIMES 1 AT PT BS FOR SUPPORT AND ASSISTANCE. WILL CONT TO MONITOR PT STATUS.
--- NOTE | 2016-11-01 21:44 | NUR ---
RN TO PT BS. PT C/O PAIN, RATES 01/18, REQUESTS MEDICATION. 1 TAB PERCOCET 10 AND 1 TAB IBUPROFEN PROVIDED AT THIS TIME. VS TAKEN AT THIS TIME TO ALLOW PT TO REST. WILL CONT TO MONITOR PT STATUS. BED IN LOW POSITION, SIDE RAILS UP TIMES 2, CALL LIGHT AND PHONE IN REACH. FAMILY TIMES 1 AT PT BS FOR SUPPORT AND ASSISTANCE.
--- NOTE | 2016-11-01 23:36 | NUR ---
RN TO PT BS FOR ROUNDS. PT RESTING IN BED IN SEMI-FOWLERS POSITION, TEXTING ON PHONE, IN NO ACUTE DISTRESS. PT DENIES ANY NEEDS AT THIS TIME. BED IN LOW POSITION, SIDE RAILS UP TIMES 2, CALL LIGHT AND PHONE IN REACH. FAMILY AT PT BS TIMES 1 FOR SUPPORT AND ASSISTANCE. WILL CONT TO MONITOR PT STATUS.
[2016-11-02 01:33] VITALS: BP 127/77
--- NOTE | 2016-11-02 01:40 | NUR ---
RN TO PT BS FOR VS. VS TAKEN, WNL. PT C/O PAIN, RATES 01/18, REQUESTS MEDICATION. 1 TAB PERCOCET 10 PROVIDED AT THIS TIME. PT REQUESTS FAN, PROVIDED. PT DENIES ANY FURTHER NEEDS. BED IN LOW POSITION, SIDE RAILS UP TIMES 2, CALL LIGHT AND PHONE IN REACH. FAMILY AT PT BS FOR SUPPORT AND ASSISTANCE. WILL CONT TO MONITOR PT STATUS.
[2016-11-02 05:27] VITALS: BP 136/89
--- NOTE | 2016-11-02 05:32 | NUR ---
RN CALLED TO PT BS. PT C/O PAIN, RATES 02/18. REQUESTS MEDICATION. 1 TAB PERCOCET 10 AND 1 TAB IBUPROFEN PROVIDED AT THIS TIME. VS TAKEN, WNL. PT DENIES ANY FURTHER NEEDS AT THIS TIME. BED IN LOW POSITION, SIDE RAILS UP TIMES 2, CALL LIGHT AND PHONE IN REACH. FAMILY AT PT BS TIMES 1 FOR SUPPORT AND ASSISTANCE. WILL CONT TO MONITOR PT STATUS.
--- NOTE | 2016-11-02 06:25 | NUR ---
CLINICAL LAB AT PT BS FOR AM DRAW. WILL ADD CBC TO REQUESTED LAB.
[2016-11-02 06:31] LABS: BASOPHILS 0 % (0-2); EOSINOPHILS 0.3 % (0-7); HEMATOCRIT 27.4 % (36.0-48.0); HEMOGLOBIN 8.6 g/dL (12-16); IMMATURE GRANULOCYTES 0.3 % (0-5); MCH 27.3 pg (26.0-34.0); MCHC 31.4 g/dL (31.0-37.0); MEAN PLATELET VOLUME 9.7 fL (7.4-10.4); MONOCYTES 6.8 % (2-11); NEUTROPHILS 74.6 % (40-80); PLATELET COUNT 148 10x3/uL (130-400); RBC 3.15 10x6/uL (4.00-5.40); RDW 17.7 % (11.5-14.5)
[2016-11-02 07:01] LABS: ALBUMIN 1.8 g/dL (3.4-5.0); ALKALINE PHOSPHATASE 95 U/L (46-116); ALT (SGPT) 20 U/L (10-68); BILIRUBIN - TOTAL 0.19 mg/dL (0.2-1.3); CARBON DIOXIDE 28.6 mmol/L (21.0-32.0); CHLORIDE - SERUM 104 mmol/L (98-107); GLUCOSE 84 mg/dL (74-106); PROTEIN - SERUM 5.8 g/dL (6.4-8.2); SODIUM 138 mmol/L (136-145)
[2016-11-02 07:02] LABS: CALC OSMOLALITY 272 mosm/kg (275-300); CREATININE - SERUM 0.7 mg/dL (0.6-1.3); MAGNESIUM - SERUM 3.4 mg/dL (1.8-2.4); UREA NITROGEN 8 mg/dL (7-18); eGFR NON AFRICAN AMERICAN > 90 mL/min (90-120)
--- NOTE | 2016-11-02 08:15 | NUR ---
TO PT'S ROOM, PT IS ASLEEP, LIGHTS ARE DIMMED IN ROOM, RESP EVEN AND UL, PT NOT DISTURBED AT THIS TIME. VISITOR IN ROOM ALSO ASLEEP, ON SOFA.
--- NOTE | 2016-11-02 09:15 | NUR ---
DR. STEVENS CALLS TO UNI, AM LABWORK RESULTS GIVEN TO MD, LAST PM'S AND THIS AM BP'S REPORTED TO MD. TELEPHONE ORDER TO DISCHARGE PT WITH 3 WEEK POST INCISION CHECK, PT HAS SEEN DR. TURNER IN THE PAST. MD STATES SHE WILL BE COMING BY IN A FEW HOURS.
--- NOTE | 2016-11-02 09:50 | NUR ---
TO ROOM, PT IS AWAKE, SITTING UP IN THE BED, PT'S FAMILY AT BEDSIDE. PT DENIES HEAVY VAGINAL BLEEDING OR PASSING CLOTS. ABDOMEN PALPATES SOFT, INCISION C/D/I, NO REDNESS NOTED TO INCISION SITE. PT HAS PERIPAD IN PLACE OVER INCISION FOR COMFORT, MESH PANTIES ON. DISCUSSING WITH PT PREECLAMPTIC SIGNS AND SYMPTOMS, AND POST DISCHARGE INSTRUCTIONS EXPLAINED TO PT AND FAMILY MEMBER IN ROOM. PT AGREES AND VOICES UNDERSTANDING.
[2016-11-02 10:04] VITALS: BP 129/79
[2016-11-02] MEDS ORDERED: PERCOCET 5-3251 TAB PO (10:15)
[2016-11-02] MEDS ORDERED: IBUPROFEN600 MG PO (10:15)
--- NOTE | 2016-11-02 10:20 | NUR ---
ASSISTED PT UP TO BR, PT MOVING SLOW, BUT STEADY.
[2016-11-02] MEDS ORDERED: ZOLOFT50 MG PO (10:26)
--- NOTE | 2016-11-02 10:35 | NUR ---
DR. STEVENS ON UNIT, TO ROOM TO SPEAK WITH PT.
--- NOTE | 2016-11-02 11:00 | NUR ---
DISCHARGE INSTRUCTIONS EXPLAINED TO PT, COPIES OF ALL D/C INSTRCUCTIONS GIVEN TO PT. PRESCRIPTIONS GIVEN TO PT, AND PP APPT CARD, ALONG WITH PT EDUCATION SHEETS GIVEN. PT DENIES QUESTIONS. PERIPADS/PANTIES/PERSONAL CARE ITEMS PROVIDED FOR PT TO TAKE WITH HER TO [place] GIVEN TO PT/FAMILY. PT DISCHARGED TO HOME BY VOLUNTEER WHEELCHAIR WITH FAMILY MEMBERS.
[2016-11-03 07:23] LABS: RAPID PLASMA REAGIN Non Reactive (Non Reactive)
[2016-11-03 13:16] LABS: HEPATITIS C ANTIBODY <0.1 (0.0-0.9)
[2016-11-03 14:24] LABS: RUBELLA IGG 1.51 index (Immune >0.99)
== END 2016-11-02 11:00 | disposition home or self-care (01) | DRG 765 ==
LOC: D.LDO 10:01 → D.LD 10:06 → D.ICU 12:45 → D.CVICU 23:03 → D.LD 11-01 12:58
PROVIDERS: Anesthesiology; Internal Medicine Hematology & Oncology; Internal Medicine Pulmonary Disease; ADMIT Specialist
PROC: 10D00Z1 Extraction of Products of Conception, Low, Open Approach (ICD-10-PCS; principal; 2016-10-31 11:03)
DX: O45.023 Premature separation of placenta with disseminated intravascular coagulation, third trimester (principal); D62 Acute posthemorrhagic anemia; Z3A.36 36 weeks gestation of pregnancy; Z37.0 Single live birth; O99.344 Other mental disorders complicating childbirth; F41.8 Other specified anxiety disorders; O14.94 Unspecified pre-eclampsia, complicating childbirth; O99.02 Anemia complicating childbirth; O75.89 Other specified complications of labor and delivery; E88.09 Other disorders of plasma-protein metabolism, not elsewhere classified; O76 Abnormality in fetal heart rate and rhythm complicating labor and delivery

== ENCOUNTER 2016-12-02 16:09 | Emergency (ER) | payer MEDICAID ==
[2016-10-31 16:27] VITALS: BMI 32.4
[~2016-12-02 16:09] MED LIST changes: +PERCOCET 5-3251 TAB PO; +ZOLOFT50 MG PO
== END 2016-12-02 16:10 | disposition left against medical advice (07) ==
LOC: D.ER 16:09
DX: F33.9 Major depressive disorder, recurrent, unspecified (principal); F41.9 Anxiety disorder, unspecified

== ENCOUNTER 2016-12-03 00:10 | Emergency (ER) | payer MEDICAID ==
[2016-10-31 16:27] VITALS: BMI 32.4
== END 2016-12-03 01:40 | disposition home or self-care (01) ==
LOC: D.ER 00:10
DX: F33.9 Major depressive disorder, recurrent, unspecified (principal); F41.9 Anxiety disorder, unspecified

== ENCOUNTER 2017-02-22 16:05 | Emergency (ER) | payer MEDICAID ==
[2016-10-31 16:27] VITALS: BMI 32.4
== END 2017-02-22 19:23 | disposition home or self-care (01) ==
LOC: D.ER 16:05
DX: S83.005A Unspecified dislocation of left patella, initial encounter (principal); X58.XXXA Exposure to other specified factors, initial encounter; Y93.89 Activity, other specified; Y92.89 Other specified places as the place of occurrence of the external cause; S93.402A Sprain of unspecified ligament of left ankle, initial encounter; F43.10 Post-traumatic stress disorder, unspecified; F17.200 Nicotine dependence, unspecified, uncomplicated

== ENCOUNTER 2017-05-05 18:59 | Emergency (ER) | payer MEDICAID ==
[2016-10-31 16:27] VITALS: BMI 32.4
[2017-05-05 20:59] LABS: HCG URINE NEGATIVE (NEGATIVE)
[2017-05-05 21:03] LABS: APPEARANCE CLEAR (CLEAR); BILIRUBIN NEGATIVE (NEGATIVE); COLOR YELLOW (YELLOW); GLUCOSE NEGATIVE (NEGATIVE); KETONE NEGATIVE (NEGATIVE); NITRITE NEGATIVE (NEGATIVE); PROTEIN NEGATIVE (NEGATIVE); SPECIFIC GRAVITY 1.015 (1.005-1.020); UROBILINOGEN NORMAL (NORMAL)
[2017-05-05 21:04] LABS: BACTERIA MANY /hpf (NONE SEEN); RED CELLS - URINE 0-5 /hpf (0-5); WHITE CELLS - URINE >50 /hpf (0-5)
== END 2017-05-05 22:11 | disposition home or self-care (01) ==
LOC: D.ER 18:59
PROVIDERS: Emergency Medicine; Nurse Practitioner Family
DX: Z20.2 Contact with and (suspected) exposure to infections with a predominantly sexual mode of transmission (principal); N89.8 Other specified noninflammatory disorders of vagina

== ENCOUNTER → 2017-05-13 19:11 | Emergency (ER) | payer MEDICAID ==
[2016-10-31 16:27] VITALS: BMI 32.4
[2017-05-13 19:51] LABS: HCG URINE NEGATIVE (NEGATIVE)
[2017-05-13 19:52] LABS: UDS - AMPHET POSITIVE QUAL (NEGATIVE); UDS - BARB NEGATIVE QUAL (NEGATIVE); UDS - BENZO POSITIVE QUAL (NEGATIVE); UDS - COCAINE NEGATIVE QUAL (NEGATIVE); UDS - OPIATE NEGATIVE QUAL (NEGATIVE); UDS - PCP NEGATIVE QUAL (NEGATIVE); UDS - THC NEGATIVE QUAL (NEGATIVE)
[2017-05-13 21:47] LABS: APPEARANCE HAZY (CLEAR); BACTERIA MODERATE /hpf (NONE SEEN); BILIRUBIN NEGATIVE (NEGATIVE); COLOR YELLOW (YELLOW); GLUCOSE NEGATIVE (NEGATIVE); KETONE NEGATIVE (NEGATIVE); MUCUS <1+ /lpf (NONE SEEN); NITRITE NEGATIVE (NEGATIVE); PROTEIN NEGATIVE (NEGATIVE); RED CELLS - URINE OCC /hpf (0-5); UROBILINOGEN NORMAL (NORMAL)
== END | disposition home or self-care (01) ==
LOC: D.ER 19:11
PROVIDERS: Emergency Medicine; Nurse Practitioner Family
DX: S00.03XA Contusion of scalp, initial encounter (principal); Y04.8XXA Assault by other bodily force, initial encounter; Y93.89 Activity, other specified; Y92.810 Car as the place of occurrence of the external cause; S39.012A Strain of muscle, fascia and tendon of lower back, initial encounter; M62.838 Other muscle spasm

== ENCOUNTER 2018-02-14 14:40 | Emergency (ER) | payer SELFPAY ==
[~2018-02-14] VITALS: Ht 160 cm; Wt 68.2 kg
[2018-02-14 14:49] VITALS: Ht 160 cm; Wt 68.2 kg
[2018-02-14] MEDS ORDERED: LIDOCAINE50 GM TOPICAL (16:57)
[2018-02-14] MEDS ORDERED: HYDROCODON-ACE1 EAC7 PO (16:59)
[2018-02-15 01:47] VITALS: BP 113/73
== END 2018-02-14 17:32 | disposition home or self-care (01) ==
LOC: D.ER 14:40
DX: A60.00 Herpesviral infection of urogenital system, unspecified (principal); F17.200 Nicotine dependence, unspecified, uncomplicated

== ENCOUNTER 2018-06-16 10:16 | Emergency (ER) | payer MEDICAID ==
[~2018-06-16] VITALS: Ht 160 cm; Wt 71.4 kg
[~2018-06-16 10:16] MED LIST changes: +LIDOCAINE50 GM TOPICAL
[2018-06-16 10:20] VITALS: Ht 160 cm; Wt 71.4 kg
[2018-06-16 10:57] LABS: APPEARANCE HAZY (CLEAR); BILIRUBIN NEGATIVE (NEGATIVE); COLOR YELLOW (YELLOW); GLUCOSE NEGATIVE (NEGATIVE); KETONE NEGATIVE (NEGATIVE); NITRITE NEGATIVE (NEGATIVE); PROTEIN NEGATIVE (NEGATIVE); SPECIFIC GRAVITY 1.015 (1.005-1.020); UROBILINOGEN NORMAL (NORMAL)
[2018-06-16 10:58] LABS: BACTERIA MODERATE /hpf (NONE SEEN); MUCUS >1+ /lpf (NONE SEEN); RED CELLS - URINE RARE /hpf (0-5)
[2018-06-16 11:06] LABS: BASOPHILS 0 % (0-2); EOSINOPHILS 0.1 % (0-7); HEMATOCRIT 34.2 % (36.0-48.0); HEMOGLOBIN 11.1 g/dL (12-16); IMMATURE GRANULOCYTES 0.1 % (0-5); LYMPHOCYTES 16.8 % (15-50); MCH 25.4 pg (26.0-34.0); MCHC 32.5 g/dL (31.0-37.0); MCV 78.3 fL (80.0-100.0); MEAN PLATELET VOLUME 9.6 fL (7.4-10.4); MONOCYTES 4.6 % (2-11); NEUTROPHILS 78.4 % (40-80); RBC 4.37 10x6/uL (4.00-5.40); RDW 18.8 % (11.5-14.5); WBC 8.4 10x3/uL (4.8-10.8)
[2018-06-16 11:07] LABS: PLATELET COUNT 355 10x3/uL (130-400)
[2018-06-16 11:08] LABS: ALBUMIN 3.1 g/dL (3.4-5.0); ALKALINE PHOSPHATASE 47 U/L (46-116); ALT (SGPT) 17 U/L (10-68); BILIRUBIN - TOTAL 0.21 mg/dL (0.2-1.3); CALC OSMOLALITY 278 mosm/kg (275-300); CALCIUM 8.8 mg/dL (8.5-10.1); CARBON DIOXIDE 22.7 mmol/L (21.0-32.0); CHLORIDE - SERUM 105 mmol/L (98-107); CREATININE - SERUM 0.7 mg/dL (0.6-1.3); GLUCOSE 93 mg/dL (74-106); POTASSIUM - SERUM 3.4 mmol/L (3.5-5.1); SODIUM 141 mmol/L (136-145); UREA NITROGEN 6 mg/dL (7-18); eGFR NON AFRICAN AMERICAN > 90 mL/min (90-120)
[2018-06-16 11:29] LABS: HCG - QUANTITATIVE (MATERNAL) 66763 mIU/mL
[2018-06-16] MEDS ORDERED: MACROBID100 MG PO (12:44)
[2018-06-16] MEDS ORDERED: NORMODYNE / TR200 MG PO (12:48)
[2018-06-16 13:21] LABS: UDS - AMPHET NEGATIVE QUAL (NEGATIVE); UDS - BARB NEGATIVE QUAL (NEGATIVE); UDS - BENZO NEGATIVE QUAL (NEGATIVE); UDS - COCAINE NEGATIVE QUAL (NEGATIVE); UDS - OPIATE NEGATIVE QUAL (NEGATIVE); UDS - PCP NEGATIVE QUAL (NEGATIVE); UDS - THC POSITIVE QUAL (NEGATIVE)
[2018-06-16 14:17] VITALS: BP 138/74
== END 2018-06-16 14:20 | disposition home or self-care (01) ==
LOC: D.ER 10:16
PROVIDERS: Emergency Medicine; Obstetrics & Gynecology
DX: O26.891 Other specified pregnancy related conditions, first trimester (principal); Z3A.10 10 weeks gestation of pregnancy; I10 Essential (primary) hypertension; Z87.42 Personal history of other diseases of the female genital tract; R10.2 Pelvic and perineal pain; N39.0 Urinary tract infection, site not specified

== ENCOUNTER → 2018-11-01 12:29 | Outpatient (CLI) | payer MEDICAID ==
[2018-06-16 10:20] VITALS: BMI 27.8
[~2018-11-01 12:29] MED LIST changes: +MACROBID100 MG PO; +NORMODYNE / TR200 MG PO
== END | disposition home or self-care (01) ==
LOC: D.LDO 12:29
PROVIDERS: ATTEND Obstetrics & Gynecology
DX: O36.8130 Decreased fetal movements, third trimester, not applicable or unspecified (principal); Z3A.30 30 weeks gestation of pregnancy

== ENCOUNTER → 2018-11-23 08:51 | Outpatient (CLI) | payer MEDICAID ==
[2018-06-16 10:20] VITALS: BMI 27.8
[2018-11-23 10:15] LABS: APPEARANCE CLEAR (CLEAR); BILIRUBIN NEGATIVE (NEGATIVE); COLOR YELLOW (YELLOW); GLUCOSE NEGATIVE (NEGATIVE); KETONE NEGATIVE (NEGATIVE); NITRITE NEGATIVE (NEGATIVE); PROTEIN NEGATIVE (NEGATIVE); SPECIFIC GRAVITY 1.015 (1.005-1.020); UROBILINOGEN NORMAL (NORMAL)
[2018-11-23 10:16] LABS: BACTERIA MODERATE /hpf (NONE SEEN); EPITHELIAL CELLS 0-5 /hpf (0-5); MUCUS <1+ /lpf (NONE SEEN); WHITE CELLS - URINE 0-5 /hpf (0-5)
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
== END | disposition home or self-care (01) ==
LOC: D.LDO 08:51
PROVIDERS: ATTEND Obstetrics & Gynecology
DX: O26.899 Other specified pregnancy related conditions, unspecified trimester (principal); Z3A.00 Weeks of gestation of pregnancy not specified

== ENCOUNTER → 2018-12-27 17:03 | Outpatient (CLI) | payer MEDICAID ==
[2018-06-16 10:20] VITALS: BMI 27.8
[~2018-12-27 17:03] MED LIST changes: +MOBIC7.5 MG PO; +PERCOCET 7.5/321 TAB PO; +VISTARIL25 MG PO; +VISTARIL50 MG PO
[2018-12-27 17:58] LABS: BASOPHILS 0.1 % (0-2); EOSINOPHILS 0.4 % (0-7); HEMATOCRIT 30.4 % (36.0-48.0); HEMOGLOBIN 9.7 g/dL (12-16); IMMATURE GRANULOCYTES 0.4 % (0-5); MCH 24.4 pg (26.0-34.0); MCHC 31.9 g/dL (31.0-37.0); MCV 76.6 fL (80.0-100.0); MEAN PLATELET VOLUME 9.6 fL (7.4-10.4); MONOCYTES 7.4 % (2-11); NEUTROPHILS 77.7 % (40-80); RBC 3.97 10x6/uL (4.00-5.40); RDW 16.7 % (11.5-14.5); WBC 11.1 10x3/uL (4.8-10.8)
[2018-12-27 18:12] LABS: PLATELET COUNT 241 10x3/uL (130-400)
--- NOTE | 2018-12-27 18:20 | NUR ---
DR. SIMON NOTIFIED AND REVIEWED PATIENT'S BEHAVIOR AND ASSESSMENT RESULTS. PT. IS A LOW RISK PER DR. SIMON. DR. SIMON STATED TO GIVE RESOURCES TO PATIENT AT TIME OF DISCHARGE. NO FURTHER ORDERS AT THIS TIME. RESOURCES REVIEWED WITH PATIENT AND SHE VERBALIZED UNDERSTANDING.
[2018-12-27 18:30] LABS: ALBUMIN 2.5 g/dL (3.4-5.0); ALKALINE PHOSPHATASE 185 U/L (46-116); ALT (SGPT) 19 U/L (10-68); BILIRUBIN - DIRECT 0.06 mg/dL (0.00-0.30); BILIRUBIN - INDIRECT 0.17 mg/dL (0.00-1.00); BILIRUBIN - TOTAL 0.23 mg/dL (0.2-1.3); CALC OSMOLALITY 272 mosm/kg (275-300); CALCIUM 8.9 mg/dL (8.5-10.1); CARBON DIOXIDE 23.7 mmol/L (21.0-32.0); CHLORIDE - SERUM 100 mmol/L (98-107); CREATININE - SERUM 0.6 mg/dL (0.6-1.3); GLUCOSE 100 mg/dL (74-106); POTASSIUM - SERUM 3.6 mmol/L (3.5-5.1); PROTEIN - SERUM 6.8 g/dL (6.4-8.2); SODIUM 137 mmol/L (136-145); UREA NITROGEN 10 mg/dL (7-18); URIC ACID 3.6 mg/dL (2.6-7.2); eGFR NON AFRICAN AMERICAN > 90 mL/min (90-120)
[2018-12-28 18:02] LABS: PROTEIN - URINE 8.9 mg/dL (0.0-11.9)
== END | disposition home or self-care (01) ==
LOC: D.LDO 17:03
PROVIDERS: ATTEND Obstetrics & Gynecology
DX: O26.893 Other specified pregnancy related conditions, third trimester (principal); Z3A.38 38 weeks gestation of pregnancy

== ENCOUNTER 2018-12-28 19:10 | Outpatient (CLI) | payer MEDICAID ==
[2018-06-16 10:20] VITALS: BMI 27.8
[~2018-12-28 19:10] MED LIST changes: -MOBIC7.5 MG PO; -PERCOCET 7.5/321 TAB PO; -VISTARIL50 MG PO
== END 2018-12-28 22:00 | disposition home or self-care (01) ==
LOC: D.LDO 19:10
PROVIDERS: ATTEND Obstetrics & Gynecology
DX: O14.93 Unspecified pre-eclampsia, third trimester (principal); Z3A.38 38 weeks gestation of pregnancy

== ENCOUNTER 2019-01-02 07:25 | Inpatient (IN) | payer MEDICAID ==
[2019-01-02] VITALS (8 sets, daily range): BP systolic 109–119; BP diastolic 64–80; Ht 160 cm; Wt 83.5 kg
[~2019-01-02] VITALS: Ht 160 cm; Wt 83.5 kg
[2019-01-02 09:09] LABS: HEMATOCRIT 29.7 % (36.0-48.0); HEMOGLOBIN 9.5 g/dL (12-16); MCH 24.5 pg (26.0-34.0); MCV 76.7 fL (80.0-100.0); MEAN PLATELET VOLUME 9.7 fL (7.4-10.4); RBC 3.87 10x6/uL (4.00-5.40); WBC 9.2 10x3/uL (4.8-10.8)
[2019-01-02 09:21] LABS: UDS - AMPHET NEGATIVE QUAL (NEGATIVE); UDS - BARB NEGATIVE QUAL (NEGATIVE); UDS - BENZO NEGATIVE QUAL (NEGATIVE); UDS - COCAINE NEGATIVE QUAL (NEGATIVE); UDS - OPIATE NEGATIVE QUAL (NEGATIVE); UDS - PCP NEGATIVE QUAL (NEGATIVE); UDS - THC NEGATIVE QUAL (NEGATIVE)
--- NOTE | 2019-01-02 10:56 | NUR ---
1043 VIABLE BABY GIRL DELIVERED CORD BLOOD DONE TAKEN OUT, RANDI.
--- NOTE | 2019-01-02 12:00 | NUR ---
received pt from recover room post section by dr. woods. pt has dermabond to incision, c/d/i. abdomen palpates soft. fundus massages to firm, with silver dollar sized blood clot expelled. pericare done with warm wet washcloths, towels/chux changed. ice pack applied to abdomen over gown. scd's on, and plugged in. pt denies nausea, sob or dizziness, or difficulty breathing. pt requests ice chips, served. srup x2, call light and phone within reach. family to room.
--- NOTE | 2019-01-02 12:15 | NUR ---
fundus firm, u/1, small rubra lochia, no clots noted.
--- NOTE | 2019-01-02 12:20 | NUR ---
dilaudid 1 mg sivp given for pt's c/o abd/incisional pain, see emar. sr up x 2, call light and phone within reach. family at bedside.
--- NOTE | 2019-01-02 12:30 | NUR ---
to room, abdomen palpates soft, fundus massages to firm, with 2 quarter sized clots expelled, gown changed, towels/chux changed. pericare done with warm wet washcloths, fresh ice pack applied to abdomen over gown to incision. srup x2, cl/phone within reach.
--- NOTE | 2019-01-02 12:45 | NUR ---
phone call made to pharmacy regarding needing toradol, haylee states she will look for it and bring it to me.
--- NOTE | 2019-01-02 13:00 | NUR ---
to pt's room, fundus firm, u/1, small rubra lochia, no clots, abdomen continues to palpate soft. peripads changed. pt continues to deny sob, nausea, dizziness or difficulty breathing. iv pitocin continues to infuse at 125 ml/hr per order. srup x 2, call light and phone within reach.
--- NOTE | 2019-01-02 13:33 | NUR ---
pt continues to c/o pain to abd/incisional area, requesting more pain medication, dilaudid 1 mg sivp given, see emar. srup x 2, call light and phone within reach. fundus firm, u/1, small rubra lochia, no clots. pt denies all other needs at this time. sr up x2, cl/phone within reach.
--- NOTE | 2019-01-02 15:00 | NUR ---
pt's c/o pain to incisional area, see emar for med adm. choco bland rn to room to assess pain. srup x 2, cl/phone within reach. family at bedside.
--- NOTE | 2019-01-02 15:24 | OP ---
PATIENT NAME: MIKE GURROLA MEDICAL RECORD: [id number] :95 LOCATION:[facility] D.1223 ADMISSION DATE:01/02/19 SURGEON: WM SIMS MD DATE OF OPERATION: 01/02/2019 PREOPERATIVE DIAGNOSES: 1. at 39 weeks. 2. History of prior section. POSTOPERATIVE DIAGNOSES: 1. Mother delivered at 39 weeks. 2. History of prior section surgery. PROCEDURE: Repeat low transverse section. SURGEON: Wm Sims MD CASEWORK SUPERVISOR: Hetal Brandon. ANESTHESIOLOGIST: Dr. Torres. ANESTHETIC: Spinal. FINDINGS: Viable female infant, vertex presentation, Apgars 9 and 9, weight 5 pounds 15 ounces. Unremarkable uterus, tubes, and ovaries bilaterally. SPECIMEN REMOVED: Placenta. SPECIMEN DISPOSITION: Discarded. ESTIMATED BLOOD LOSS: 700 cc. FLUIDS: 1300 cc of lactated Ringer's. URINE OUTPUT: 200 cc of clear urine. COMPLICATIONS: None. DRAIN: Massey to gravity. INDICATIONS: The patient is a 23-year-old multiparous female with history of prior section. The patient is consented for repeat and all indicated procedures. Risks, benefits, and limitations have been described. DESCRIPTION OF PROCEDURE: After informed consent was assured, the patient was taken to the operating room where anesthetic was obtained without difficulty. The patient is prepped and draped and assessment of the anesthetic finds it to be adequate. An incision was made over the old scar, carried down to the underlying layer of the fascia, which was opened in the midline and extended laterally. Rectus bellies were dissected free, then in the midline. The rectus bellies were further and a DeLee all-purpose retractor inserted. A low transverse hysterotomy was performed and the infant was delivered on to the abdomen atraumatically. Cord was doubly clamped and cut and the infant was passed to the attendant. The cord blood sample was obtained and the placenta was delivered via Crede maneuver. Uterus was not exteriorized, OPERATIVE REPORT [id number] MIKE GURROLA cleared of all clot and debris. Uterus was closed in a running locked fashion with chromic. After this had been performed, the posterior cul-de-sacs irrigated. The uterus was returned to the abdomen and hysterotomy was inspected and found to be hemostatic. The pelvis was irrigated and irrigant removed. Initial sponge count was correct. The rectus bellies were reapproximated with a loose interrupted stitch of chromic in the midline. The fascia was closed with looped PDS in a running fashion. Subcutaneous tissues were irrigated, bleeding vessels cauterized, and skin reapproximated with a subcuticular stitch. Sterile dressing is applied. Sponge, lap, and needle counts were correct times 2 at the close of this procedure. TRANSINT:[id number] Voice Confirmation ID: [id number] DOCUMENT ID: [id number] WM SIMS MD at 1524 CC: [id number] DICTATION DATE: 01/02/19 1105 AIRWAYS OPERATIONS SPECIALIST: 01/02/19 1337 ADM IN [place] [id number] [place] [address]
--- NOTE | 2019-01-02 17:45 | NUR ---
to pt's room, fundus firm, u/1, small rubra lochia, no clots. pericare done with warm wet washcloths, towels/chux changed. quiles cath continues to drain clear yellow urine, scd's remain on. pt has eaten 100 % of clear liquid diet. denies sob, dizziness, or nausea. pt rating pain to incisional site as 4/10, denies needing pain medication at this time. srup x2, cl/phone within reach. pt's mother at bedside, holding .
--- NOTE | 2019-01-02 19:53 | NUR ---
pt requests pain medication, dilaudid 2 mg sivp adm. see emar for med adm. srup x2, call light and phone within reach.
--- NOTE | 2019-01-02 20:30 | NUR ---
ASSESSMENT PER FLOW SHEET, VS OBTAINED PER LUIS DOBBINS RN, IV IN LEFT WRIST INTACT WITH NO REDNESS OR EDEMA INFUSING NS WITH PITOCIN AT 125 ML/HR, FF, ML, U/1, LITE-MOD BLEEDING NOTED WITH NO CLOTS, KIEL CARE DONE WITH WET WARM WASH CLOTHS, BLUE CHUX AND KIEL PAD CHANGED, BIKINI INC WITH DERMABOND CDI WITH NO DRAINAGE NOTED, KIEL PAD PLACED OVER INC FOR COMFORT AND MOISTURE CONTROL, ICE PACK TO ABD, AGUILAR CATH INTACT DRAINING DARK YELLOW URINE, PT ENC TO DRINK PLENTY OF FLUIDS, FRESH H20 SERVED, SCD'S ON AND WORKING PROPERLY, DINNER TRAY REMOVED, PT DENIES FURTHER NEEDS, PT'S MOM HOLDING INFANT
--- NOTE | 2019-01-02 21:30 | NUR ---
PT AWAKE, HOLDING INFANT, DENIES NEEDS AT THIS TIME, PT'S MOM AT BEDSIDE
--- NOTE | 2019-01-02 22:46 | NUR ---
ADM TORADOL PER MD ORDERS, SEE EMAR
[2019-01-03 00:46] VITALS: BP 112/68
--- NOTE | 2019-01-03 00:46 | NUR ---
PT AWAKE, VS OBTAINED, KIEL CARE DONE WITH WET WARM WASH CLOTHS, LITE BLEEDING NOTED WITH NO CLOTS, AGUILAR CATH EMPTIED, ADM DILAUDID AND NEW BAG OF NS WITH PITOCIN PER MD ORDERS, SEE EMAR, FRESH ICE PACK TO ABD, PT DENIES FURTHERS NEEDS
--- NOTE | 2019-01-03 01:30 | NUR ---
PT AWAKE, HOLDING INFANT, DENIES NEEDS OR PAIN AT THIS TIME, PT'S MOM ASLEEP AT BEDSIDE
--- NOTE | 2019-01-03 03:05 | NUR ---
PT RESTING, INFANT IN OPEN CRIB CART AT BEDSIDE, PT'S MOM ASLEEP IN RECLINER, PT DENIES NEEDS AT THIS TIME
[2019-01-03 05:15] VITALS: BP 123/91
--- NOTE | 2019-01-03 05:15 | NUR ---
PT AWAKE, VS OBTAINED, I&O'S COLLECTED, KIEL CARE DONE WITH WET WARM WASH CLOTH, LITE BLEEDING NOTED WITH NO CLOTS, PT KNOCKED WATER OVER ON BED, COMPLETE BEDDING CHANGE DONE, FRESH ICE PACK TO ABD, ADM TORADOL PER MD ORDERS, SEE EMAR, SCD'S CONTINUE ON AND WORKING PROPERLY, PT DENIES FURTHER NEEDS
--- NOTE | 2019-01-03 06:45 | NUR ---
PT FEEDING INFANT, DENIES NEEDS OR PAIN AT THIS TIME, PT'S MOM AT BEDSIDE
--- NOTE | 2019-01-03 07:00 | NUR ---
SHIFT REPORT TO DAY SHIFT
[2019-01-03 07:14] LABS: BASOPHILS 0.2 % (0-2); EOSINOPHILS 0.5 % (0-7); HEMATOCRIT 25.2 % (36.0-48.0); HEMOGLOBIN 7.8 g/dL (12-16); IMMATURE GRANULOCYTES 0.2 % (0-5); LYMPHOCYTES 13.1 % (15-50); MCH 23.9 pg (26.0-34.0); MCV 77.1 fL (80.0-100.0); MEAN PLATELET VOLUME 10.1 fL (7.4-10.4); MONOCYTES 6.9 % (2-11); NEUTROPHILS 79.1 % (40-80); PLATELET COUNT 200 10x3/uL (130-400); RBC 3.27 10x6/uL (4.00-5.40); RDW 17.2 % (11.5-14.5); WBC 8.9 10x3/uL (4.8-10.8)
[2019-01-03 07:18] LABS: RAPID PLASMA REAGIN Non Reactive (Non Reactive)
--- NOTE | 2019-01-03 07:35 | NUR ---
dr. woods to md dalton discussed plan of care with pt. explains to will have quiles cath out, iv sl, advance to regular diet today.
--- NOTE | 2019-01-03 10:15 | NUR ---
to pt's room, am assessment completed. see flowsheet. pt continues to have quiles cath in place, draining light yellow urine. iv saline locked at this time. see emar for all meds adm by this rn. srup x2, call light and phone within reach.
[2019-01-03 10:21] VITALS: BP 98/56
--- NOTE | 2019-01-03 12:30 | NUR ---
pt's quiles cath removed with 1600 ml's light yellow urine out. fundus firm, u/1, small rubra lochia, no clots. pt wishes to take a shower. will locate shower chair for pt's comfort and safety. see emar for all meds adm by this rn. srup x2, call light and phone within reach.
--- NOTE | 2019-01-03 12:58 | NUR ---
paged evs to locate shower chair.
--- NOTE | 2019-01-03 16:00 | NUR ---
pt assisted up to shower, gait slow but steady. clean linens provided, along with peripads/panties, clean gown. bed linens changed. pt's mother remains at bedside.
--- NOTE | 2019-01-03 17:30 | NUR ---
pt to bed, dressed in own clothing. abdomen palpates soft. incision c/d/i. peripad placed over incision for comfort. pt denies sob, difficulty breathing, dizziness, or nausea. fresh ice pack placed over gown to incision. sr up x2, call light and phone within reach. family at bedside.
--- NOTE | 2019-01-03 18:56 | NUR ---
report given to choco rocha rn.
--- NOTE | 2019-01-03 19:15 | NUR ---
PM ROUNDS MADE, PT VISITING WITH FAMILY AND FRIENDS, MALE MEMBER HOLDING INFANT, INFORMED PT THAT I WILL BE BACK SHORTLY TO DO ASSESSMENT, PT VERBALIZES UNDERSTANDING, DENIES NEEDS OR PAIN AT THIS TIME
--- NOTE | 2019-01-03 19:25 | NUR ---
SPOKE TO DR SIMS, ORDERS TO CHANGE TORADOL IV TO MOTRIN 800MG Q8H, ORDERS READ BACK AND VERIFIED
--- NOTE | 2019-01-03 20:10 | NUR ---
PT AMB IN [place], GAIT STEADY, FAMILY/FRIEND AT SIDE
[2019-01-03 20:30] VITALS: BP 117/76
--- NOTE | 2019-01-03 20:30 | NUR ---
ASSESSMENT PER FLOW SHEET, VS OBTAINED, SALINE LOCK IN RIGHT WRIST INTACT WITH NO REDNESS OR EDEMA, FF, ML, U/2, PT REPORTS LITE BLEEDING WITH NO CLOTS, BIKINI INC WITH DERMABOND CDI WITH NO DRAINAGE NOTED, KIEL PAD OVER INC FOR COMFORT AND MOISTURE CONTROL, PT REPORTS FALTUS, NO BM AND VOIDING WITH NO DIFFICULTY, PT C/O INC PAIN, WILL ADM PAIN MED
--- NOTE | 2019-01-03 20:56 | NUR ---
ADM MOTRIN PER MD ORDERS, WILL ADM PAIN MED WHEN DUE, PT DENIES FURTHER NEEDS
--- NOTE | 2019-01-03 21:40 | NUR ---
PT HOLDING INFANT, ADM PAIN MED PER MD ORDERS, SEE EMAR, PT DENIES FURTHER NEEDS AT THIS TIME
--- NOTE | 2019-01-03 22:25 | NUR ---
PT SITTING UP ON SIDE OF BED, REPORTS PAIN IS BETTER, SEE EMAR REASSESSMENT, PT REQUESTED AND SERVED CUP OF ICE, PT DENIES FURTHER NEEDS
--- NOTE | 2019-01-03 22:45 | NUR ---
DR SIMS ON L&D UNIT, RECEIVED VERBAL ORDERS TO CHANGE VS TO Q8H
--- NOTE | 2019-01-04 00:29 | NUR ---
PT UP IN ROOM, IN OPEN CRIB CART, PT REQUESTS PAIN MED WHEN DUE, INFORMED PT THAT IT WAS DUE AROUND 0, PT VERBALIZES UNDERSTANDING, DENIES FURTHER NEEDS AT THIS TIME
--- NOTE | 2019-01-04 01:36 | NUR ---
PT HOLDING INFANT, ADM PERCOCET PER MD ORDERS FOR PAIN, SEE EMAR, PT DENIES FURTHER NEEDS AT THIS TIME
[2019-01-04 04:07] VITALS: BP 111/64
--- NOTE | 2019-01-04 04:07 | NUR ---
PT RESTING WITH EYES CLOSED, AROUSES TO SOFT VERBAL STIMULATION, VS OBTAINED, ADM MOTRIN PER MD ORDERS, SEE EMAR, PT DENIES NEEDS, TO ROOM PER MERA NERI, ANIMAL NUTRITION CONSULTANT
--- NOTE | 2019-01-04 06:15 | NUR ---
PT RESTING, ADM PAIN MED PER MD ORDERS, SEE EMAR, PT DENIES FURTHER NEEDS AT THIS TIME, IN OPEN CRIB CART AT BEDSIDE
[2019-01-04 07:30] VITALS: BP 118/73
--- NOTE | 2019-01-04 07:30 | NUR ---
VS OBTAINED PER BRENDEN SARMIENTO RN
--- NOTE | 2019-01-04 08:15 | NUR ---
ASSESSMENT PER FLOW SHEET, SALINE LOCK IN LEFT WRIST INTACT WITH NO REDNESS OR EDEMA, FF, ML, U/1, PT REPORTS LITE BLEEDING WITH NO CLOTS, BIKINI INC WITH DERMABOND CDI WITH NO DRAINAGE NOTED, KIEL PAD OVER INC FOR COMFORT AND MOISTURE CONTROL, PT REPORTS FLATUS, NO BM AND VOIDING WITH NO DIFFICULTY, PT DENIES NEEDS AT THIS TIME, IN OPEN CRIB CART AT BEDSIDE
--- NOTE | 2019-01-04 09:35 | NUR ---
PT REQUESTED AND PROVIDED KIEL PADS, SALINE LOCK REMOVED, TIP INTACT, PRESSURE HELD, BANDAID APPLIED, INFORMED PT THAT BRENDEN SARMIENTO RN WAS WORKING ON DISCHARGE PAPER WORK, PT VERBALIZES UNDERSTANDING, DENIES FURTHER NEEDS, IN OPEN CRIB CART AND FAMILY MEMBER AT BEDSIDE
[2019-01-04] MEDS ORDERED: VISTARIL50 MG PO (10:42)
[2019-01-04] MEDS ORDERED: MOBIC7.5 MG PO (10:44)
[2019-01-04] MEDS ORDERED: PERCOCET 7.5/321 TAB PO (10:45)
--- NOTE | 2019-01-04 11:23 | NUR ---
PT READY TO GO HOME, WENT OVER ALL DISCHARGE PAPER WORK AND PRESCRIPTIONS, PT VERBALIZES UNDERSTANDING, PT C/O INC PAIN AND CRAMPING, WILL ADM PAIN MED AND MOTRIN, PT REQUESTED, PROVIDED, AND SIGNED FOR ABD BINDER
--- NOTE | 2019-01-04 11:27 | NUR ---
ADM MOTRIN AND PERCOCET PER MD ORDERS, SEE MECCA MATHEW, RN IN ROOM GOING OVER INST ON INFANT
--- NOTE | 2019-01-04 11:59 | NUR ---
ASSISTED PT WITH ABD BINDER, PT WAITING ON GRANDMOTHER, PT INST TO USE CALL LIGHT WHEN READY TO LEAVE, PT VERBALIZES UNDERSTANDING
--- NOTE | 2019-01-04 12:33 | NUR ---
PT DISCHARGED HOME VIA WC PER [facility]OS[facility] WITH , GRANDMOTHER, AND ALL BELONGINGS
== END 2019-01-04 12:33 | disposition home or self-care (01) | DRG 788 ==
LOC: D.WS 07:25 → D.LD 07:25 → D.SDCHOLD 09:00 → D.WS 11:58
PROVIDERS: ADMIT Obstetrics & Gynecology; ATTEND Obstetrics & Gynecology
PROC: 10D00Z1 Extraction of Products of Conception, Low, Open Approach (ICD-10-PCS; principal; 2019-01-02 09:00)
DX: O34.211 Maternal care for low transverse scar from previous cesarean delivery (principal); Z3A.39 39 weeks gestation of pregnancy; Z37.0 Single live birth; O99.334 Smoking (tobacco) complicating childbirth

== ENCOUNTER 2019-01-11 11:33 | Emergency (ER) | payer MEDICAID ==
[~2019-01-11] VITALS: Ht 160 cm; Wt 78.2 kg
[~2019-01-11 11:33] MED LIST changes: +MOBIC7.5 MG PO; +PERCOCET 7.5/321 TAB PO; +VISTARIL50 MG PO
[2019-01-11 11:38] VITALS: Ht 160 cm; Wt 78.2 kg
[2019-01-11 12:14] LABS: BASOPHILS 0.2 % (0-2); EOSINOPHILS 1.4 % (0-7); HEMATOCRIT 31.1 % (36.0-48.0); HEMOGLOBIN 9.5 g/dL (12-16); IMMATURE GRANULOCYTES 0.6 % (0-5); LYMPHOCYTES 16.4 % (15-50); MCH 24.1 pg (26.0-34.0); MCHC 30.5 g/dL (31.0-37.0); MCV 78.7 fL (80.0-100.0); MEAN PLATELET VOLUME 8.8 fL (7.4-10.4); MONOCYTES 6.8 % (2-11); NEUTROPHILS 74.6 % (40-80); RBC 3.95 10x6/uL (4.00-5.40); RDW 17.1 % (11.5-14.5); WBC 8.9 10x3/uL (4.8-10.8)
[2019-01-11 12:24] LABS: PLATELET COUNT 366 10x3/uL (130-400)
[2019-01-11 12:29] LABS: ALBUMIN 2.7 g/dL (3.4-5.0); ALKALINE PHOSPHATASE 104 U/L (46-116); ALT (SGPT) 24 U/L (10-68); BILIRUBIN - TOTAL 0.22 mg/dL (0.2-1.3); CALC OSMOLALITY 278 mosm/kg (275-300); CALCIUM 9.2 mg/dL (8.5-10.1); CARBON DIOXIDE 25.5 mmol/L (21.0-32.0); CHLORIDE - SERUM 104 mmol/L (98-107); CREATININE - SERUM 0.7 mg/dL (0.6-1.3); GLUCOSE 86 mg/dL (74-106); POTASSIUM - SERUM 3.7 mmol/L (3.5-5.1); PROTEIN - SERUM 7.9 g/dL (6.4-8.2); SODIUM 140 mmol/L (136-145); UREA NITROGEN 16 mg/dL (7-18); eGFR NON AFRICAN AMERICAN > 90 mL/min (90-120)
[2019-01-11 12:35] LABS: APPEARANCE SL CLDY (CLEAR); BACTERIA MANY /hpf (NONE SEEN); BILIRUBIN NEGATIVE (NEGATIVE); COLOR YELLOW (YELLOW); GLUCOSE NEGATIVE (NEGATIVE); KETONE NEGATIVE (NEGATIVE); MUCUS <1+ /lpf (NONE SEEN); NITRITE NEGATIVE (NEGATIVE); PROTEIN 1+ mg/dL (NEGATIVE); RED CELLS - URINE OCC /hpf (0-5); SPECIFIC GRAVITY 1.015 (1.005-1.020); UROBILINOGEN NORMAL (NORMAL)
[2019-01-11] MEDS ORDERED: KEFLEX500 MG PO (14:16)
[2019-01-11] MEDS ORDERED: VOLTAREN75 MG PO (14:16)
[2019-01-11] MEDS ORDERED: ZOFRAN ODT4 MG/UDTAB PO (14:16)
[2019-01-11 15:03] VITALS: BP 137/89
== END 2019-01-11 14:58 | disposition home or self-care (01) ==
LOC: D.ER 11:33
PROVIDERS: Family Medicine
DX: O86.20 Urinary tract infection following delivery, unspecified (principal); D63.8 Anemia in other chronic diseases classified elsewhere; Z98.890 Other specified postprocedural states

== ENCOUNTER 2020-04-04 18:05 | Emergency (ER) | payer OTHER ==
[~2020-04-04] VITALS: Ht 160 cm; Wt 79.5 kg
[~2020-04-04 18:05] MED LIST changes: +KEFLEX500 MG PO; +VOLTAREN75 MG PO; +ZOFRAN ODT4 MG/UDTAB PO
[2020-04-04 18:36] VITALS: BP 128/77; Ht 160 cm; Wt 79.5 kg
[2020-04-04] MEDS ORDERED: ZESTRIL10 MG PO (18:40)
[2020-04-04] MEDS ORDERED: LITHIUM CARBON300 MG PO (18:40)
[2020-04-04] MEDS ORDERED: KLONOPIN1 MG PO (18:41)
[2020-04-04 19:00] LABS: BILIRUBIN NEGATIVE (NEGATIVE); KETONE NEGATIVE (NEGATIVE); NITRITE NEGATIVE (NEGATIVE); UROBILINOGEN NORMAL mg/dL (< 2)
[2020-04-04 19:01] LABS: BACTERIA NONE SEEN HPF (NONE SEEN); EPITHELIAL CELLS NSEEN /hpf (0-5); WHITE CELLS - URINE NSEEN HPF (0-4)
[2020-04-04 19:14] LABS: BASOPHILS 0.5 % (0-2); EOSINOPHILS 1.5 % (0-7); HEMATOCRIT 29.1 % (36.0-48.0); HEMOGLOBIN 8.5 g/dL (12-16); IMMATURE GRANULOCYTES 0.1 % (0-5); LYMPHOCYTES 32.5 % (15-50); MCH 21.7 pg (26.0-34.0); MCHC 29.2 g/dL (31.0-37.0); MCV 74.4 fL (80.0-100.0); MEAN PLATELET VOLUME 8.8 fL (7.4-10.4); MONOCYTES 5.6 % (2-11); NEUTROPHILS 59.8 % (40-80); PLATELET COUNT 372 10x3/uL (130-400); RBC 3.91 10x6/uL (4.00-5.40); RDW 18.1 % (11.5-14.5); WBC 8.1 10x3/uL (4.8-10.8)
[2020-04-04 19:21] LABS: CALC OSMOLALITY 268 mosm/kg (275-300); CARBON DIOXIDE 27.1 mmol/L (21.0-32.0); CHLORIDE - SERUM 102 mmol/L (98-107); CREATININE - SERUM 0.8 mg/dL (0.6-1.3); GLUCOSE 90 mg/dL (74-106); POTASSIUM - SERUM 3.4 mmol/L (3.5-5.1); SODIUM 135 mmol/L (136-145); UREA NITROGEN 11 mg/dL (7-18); eGFR NON AFRICAN AMERICAN > 90 mL/min (90-120)
[2020-04-04 19:27] LABS: ALBUMIN 3.8 g/dL (3.4-5.0); ALKALINE PHOSPHATASE 59 U/L (30-120); ALT (SGPT) 25 U/L (10-68); BILIRUBIN - TOTAL 0.15 mg/dL (0.2-1.3); PROTEIN - SERUM 8.2 g/dL (6.4-8.2)
[2020-04-04 19:30] LABS: HCG SERUM NEGATIVE (NEGATIVE)
== END 2020-04-04 19:49 | disposition left against medical advice (07) ==
LOC: D.ER 18:05
PROVIDERS: Family Medicine
DX: N93.9 Abnormal uterine and vaginal bleeding, unspecified (principal)